=== PATIENT | female | born 1955 | race Caucasian/White ===

== ENCOUNTER 2025-09-13 13:59 | Inpatient (IN) | payer MEDICARE ==
[~2025-09-13] VITALS: Ht 162.6 cm; Wt 59.0 kg
[2025-09-13] MEDS: IV NS 0.9% 1,000 ML BAG IV ONE (14:28)
[2025-09-13 14:39] LABS: CALCIUM, SERUM 9.4 mg/dL (8.5-10.1); CREATININE 1.0 mg/dL (0.6-1.3); SODIUM SERUM 141 mmol/L (136-145); UREA NITROGEN, BLOOD 15 mg/dL (7-18)
[2025-09-13 14:44] LABS: PLATELET COUNT (AUTO) 514 K/uL (150-450); RED BLOOD CELL COUNT(AUTO) 4.79 MIL/uL (4.0-5.2); RED CELL DISTRIBUTION WIDTH 13.9 % (11.5-15.0); WHITE BLOOD COUNT (AUTO) 12.8 K/uL (4.3-11.0)
[2025-09-13] MEDS ORDERED: ESCI10TA PO (14:50)
[2025-09-13] MEDS ORDERED: RAME8TAB15 PO (14:50)
[2025-09-13] MEDS ORDERED: LEVO100T9 PO (14:50)
[2025-09-13] MEDS ORDERED: FEXO180T94 PO (14:50)
[2025-09-13] MEDS ORDERED: ACYC200C31 PO (14:50)
[2025-09-13] MEDS ORDERED: PROG200C15 PO (14:50)
[2025-09-13] MEDS ORDERED: ROPI1TAB6 PO (14:50)
[2025-09-13] MEDS ORDERED: DOXY100T2 PO (14:50)
[2025-09-13] MEDS ORDERED: DIPH25CA83 PO (14:50)
[2025-09-13 15:11] LABS: ASPARTATE AMINOTRANSFERASE 28.0 U/L (15-37); TOTAL PROTEIN, SERUM 8.0 g/dL (6.4-8.2)
[2025-09-13] MEDS ORDERED: HYDROCODONE/APAP 5/325MG TABLET PO PRN (17:30)
[2025-09-13] MEDS ORDERED: ACETAMINOPHEN 325 MG TABLET PO PRN (17:30)
[2025-09-13] MEDS ORDERED: MAG HYDROX/AL HYDROX/SIMETH 30 ML UDC PO PRN (17:30)
[2025-09-13] MEDS ORDERED: IV NS 0.9% 1,000 ML IV PRN (17:30)
[2025-09-13] MEDS ORDERED: Z GUARD REMEDY 4 OZ OINT TP PRN (17:30)
[2025-09-13] MEDS ORDERED: MAGNESIUM HYDROXIDE 30 ML UDC PO PRN (17:30)
[2025-09-13] MEDS ORDERED: ONDANSETRON HCL/PF 4 MG/2 ML VIAL IVP PRN (17:30)
[2025-09-13 21:00] VITALS: BP 138/82; TEMP 98.2; O2SAT 100
[2025-09-14 01:00] VITALS: BP 111/64; TEMP 98.2; O2SAT 98
[2025-09-14] MEDS: ZOLPIDEM TARTRATE 5 MG TABLET PO PRN (02:35)
[2025-09-14 05:00] VITALS: BP 121/84; TEMP 98.5; O2SAT 96
[2025-09-14 07:17] LABS: PLATELET COUNT (AUTO) 447 K/uL (150-450); RED BLOOD CELL COUNT(AUTO) 4.34 MIL/uL (4.0-5.2); RED CELL DISTRIBUTION WIDTH 13.9 % (11.5-15.0); WHITE BLOOD COUNT (AUTO) 8.5 K/uL (4.3-11.0)
[2025-09-14 07:26] LABS: CALCIUM, SERUM 8.3 mg/dL (8.5-10.1); CREATININE 0.7 mg/dL (0.6-1.3); PHOSPHORUS 3.6 mg/dL (2.5-4.9); SODIUM SERUM 141.0 mmol/L (136-145); UREA NITROGEN, BLOOD 12.0 mg/dL (7-18)
[2025-09-14 08:06] LABS: LDL 115.0 mg/dL (0-99)
[2025-09-14 09:00] VITALS: BP 166/91; TEMP 97.7; O2SAT 98
[2025-09-14] MEDS ORDERED: FLUD0.1T PO (13:45)
[2025-09-15] MEDS ORDERED: ONDA4TAB5 PO (23:47)
== END 2025-09-14 14:40 | disposition home or self-care (01) | DRG 312 ==
LOC: ER 14:09 → TELE1 16:25 → MEDSG1 09-14 13:48
DX: I95.1 Orthostatic hypotension (principal); D89.89 Other specified disorders involving the immune mechanism, not elsewhere classified; E03.9 Hypothyroidism, unspecified; G25.81 Restless legs syndrome; F32.A Depression, unspecified; S06.9X9A Unspecified intracranial injury with loss of consciousness of unspecified duration, initial encounter; Z79.890 Hormone replacement therapy; W18.30XA Fall on same level, unspecified, initial encounter; Z79.899 Other long term (current) drug therapy; Y92.9 Unspecified place or not applicable
CPT/HCPCS: 36415; 70450-TC; 71045-TC; 72125-TC; 80048-TC; 80061-TC; 80076-TC; 82962-TC; 83735-TC; 84100-TC; 84443-TC; 84484-TC; 85025-TC; 93307-TC; 97112-TC; 97116-TC; 97530-TC; G0378; J7030

== ENCOUNTER 2025-09-15 20:00 | Emergency (ER) | payer MEDICARE ==
[~2025-09-15] VITALS: Ht 157.5 cm; Wt 60.8 kg
[~2025-09-15 20:00] MED LIST: ACYC200C31 PO; DIPH25CA83 PO; DOXY100T2 PO; ESCI10TA PO; FEXO180T94 PO; FLUD0.1T PO; LEVO100T9 PO; PROG200C15 PO; RAME8TAB15 PO; ROPI1TAB6 PO
[2025-09-15] MEDS ORDERED: ONDANSETRON HCL/PF 4 MG/2 ML VIAL ONE (23:05)
[2025-09-15] MEDS: ONDANSETRON HCL/PF 4 MG/2 ML VIAL IVP ONE (23:19)
[2025-09-15 23:23] LABS: PLATELET COUNT (AUTO) 453 K/uL (150-450); RED BLOOD CELL COUNT(AUTO) 4.34 MIL/uL (4.0-5.2); RED CELL DISTRIBUTION WIDTH 13.4 % (11.5-15.0); WHITE BLOOD COUNT (AUTO) 10.1 K/uL (4.3-11.0)
[2025-09-15 23:31] LABS: CALCIUM, SERUM 9.6 mg/dL (8.5-10.1); CREATININE 0.7 mg/dL (0.6-1.3); SODIUM SERUM 143 mmol/L (136-145); UREA NITROGEN, BLOOD 26 mg/dL (7-18)
[2025-09-15 23:35] LABS: INR 1.0 (0.91-1.10)
[2025-09-15 23:43] LABS: ASPARTATE AMINOTRANSFERASE 22 U/L (15-37); NT-PRO BNP 197 pg/mL (0-125); TOTAL PROTEIN, SERUM 7.5 g/dL (6.4-8.2)
[2025-09-15] MEDS ORDERED: ONDA4TAB5 PO (23:47)
[2025-09-16 00:42] VITALS: BP 131/81; TEMP 98.2; O2SAT 99
== END 2025-09-16 00:43 | disposition home or self-care (01) ==
LOC: ER 20:07
DX: R51.9 Headache, unspecified (principal); F07.81 Postconcussional syndrome; G89.29 Other chronic pain; M51.360 Other intervertebral disc degeneration, lumbar region with discogenic back pain only; G25.81 Restless legs syndrome; R06.02 Shortness of breath; Z79.624 Long term (current) use of inhibitors of nucleotide synthesis; Z79.890 Hormone replacement therapy; Z79.899 Other long term (current) drug therapy; Z60.2 Problems related to living alone
CPT/HCPCS: 99285; 70450; 96374; 71045; 93005; 72131; 85025; 80048; 80076; 36415; 84484; 85730; 83880; J2405